=== PATIENT | male | born 1960 | race Caucasian/White ===

== ENCOUNTER 2018-09-24 07:23 | Day surgery (SDC) | payer BC ==
[~2018-09-24] VITALS: Ht 182.9 cm; Wt 98.9 kg
[~2018-09-24 07:23] MED LIST: BUPIVACAINE/PF 0.5% ONE; EPINEPHRINE 1 MG/ML, 1ML ONE; FENTANYL PF 250 MCG/5ML ONE; LIDOCAINE 1%, 20ML ONE; MIDAZOLAM 1 MG/ML, 2ML ONE
[2018-09-24] MEDS ORDERED: LACTATED RINGERS 1,000 ML IV SCH (07:41)
[2018-09-24 07:57] VITALS: BP 142/84
[2018-09-24] MEDS ORDERED: DULO60CA7 PO (07:57)
[2018-09-24] MEDS ORDERED: MULT-658 PO (07:57)
[2018-09-24] MEDS ORDERED: PREG75CA PO (07:57)
[2018-09-24] MEDS ORDERED: LAMO100T PO (07:57)
[2018-09-24] MEDS ORDERED: LISI-167 PO (07:57)
[2018-09-24] MEDS ORDERED: PRAM0.12 PO (07:57)
[2018-09-24] MEDS ORDERED: TAMS-11 PO (07:57)
[2018-09-24] MEDS ORDERED: BUPR150T73 PO (07:57)
[2018-09-24] MEDS ORDERED: ACETAMINOPHEN 500 MG TABLET PO ONE (08:30)
[2018-09-24] MEDS ORDERED: GABAPENTIN 300 MG CAPSULE PO ONE (08:30)
[2018-09-24] MEDS ORDERED: PRAMIPEXOLE 0.125MG TABLET PO PRN (08:30)
[2018-09-24 08:33] LABS: ALANINE AMINOTRANSFERASE 22 U/L (12-78); ANION GAP 9 mmol/L (5-15); CALCIUM 8.8 mg/dL (8.5-10.1); CHLORIDE 108 mmol/L (98-107); CREATININE 0.79 mg/dL (0.7-1.3)
[2018-09-24 08:35] LABS: ALKALINE PHOSPHATASE 92 U/L (45-117); BILIRUBIN,TOTAL 1.1 mg/dL (0.2-1.0)
[2018-09-24] MEDS ORDERED: SUCCINYLCHOLINE 20 MG/ML, 10ML ONE (08:37)
[2018-09-24] MEDS ORDERED: CEFAZOLIN 1,000 MG ONE (08:37)
[2018-09-24] MEDS ORDERED: ROCURONIUM 10MG/ML,5ML ONE (08:37)
[2018-09-24] MEDS ORDERED: DEXAMETHASONE 4 MG/ML, 1ML ONE (08:37)
[2018-09-24] MEDS ORDERED: PROPOFOL 10 MG/ML, 20ML ONE (08:37)
[2018-09-24] MEDS ORDERED: ONDANSETRON 2MG/ML, 2ML ONE (08:37)
[2018-09-24] MEDS ORDERED: LISINOPRIL 10 MG TABLET PO SCH (09:00)
[2018-09-24] MEDS ORDERED: TEMPLATE NON-FORMULARY MED. (Duloxetine Hcl (Cymbalta**) 60 MG) PO SCH (09:00)
[2018-09-24] MEDS ORDERED: LAMOTRIGINE 100 MG TABLET PO SCH (09:00)
[2018-09-24] MEDS ORDERED: BUPROPION SR 150 MG TABLET PO SCH (09:00)
[2018-09-24] MEDS ORDERED: PREGABALIN 75 MG CAPSULE PO SCH (09:00)
[2018-09-24] MEDS ORDERED: TAMSULOSIN 0.4 MG CAP.ER.24H PO SCH (21:00)
== END 2018-09-24 12:20 | disposition home or self-care (01) ==
LOC: OUT 07:23
PROVIDERS: ATTEND Orthopaedic Surgery
DX: S43.432A Superior glenoid labrum lesion of left shoulder, initial encounter (principal); M75.112 Incomplete rotator cuff tear or rupture of left shoulder, not specified as traumatic; M19.012 Primary osteoarthritis, left shoulder; M66.822 Spontaneous rupture of other tendons, left upper arm; M75.42 Impingement syndrome of left shoulder; M65.812 Other synovitis and tenosynovitis, left shoulder; X58.XXXA Exposure to other specified factors, initial encounter; Y93.89 Activity, other specified; Y92.89 Other specified places as the place of occurrence of the external cause; Y99.8 Other external cause status; Z72.89 Other problems related to lifestyle
CPT/HCPCS: 29823; 29824; 29826; 29827; 29828; 36415; 64415; 80053; 93005; C1713; J0171; J0330; J0690; J1100; J2250; J2405; J2704; J3010; J3490; J7120